=== PATIENT | male | born 1995 | race Native Hawaiian/Other Pacific Islander ===

== ENCOUNTER 2016-09-06 10:39 | Emergency (ER) | payer OTHER | END 2016-09-06 11:17 | disposition home or self-care (01) | LOC: ED 10:39 | DX: R50.9 Fever, unspecified (principal) ==

== ENCOUNTER 2021-01-03 13:09 | Emergency (ER) | payer OTHER ==
[~2021-01-03] VITALS: Ht 190.5 cm; Wt 121.6 kg
[2021-01-03 13:10] VITALS: TEMP 98
[2021-01-03 14:00] LABS: PLATELET COUNT 320 K/uL (142-355)
[2021-01-03 14:06] LABS: POTASSIUM 3.7 mmol/L (3.6-5.2); SODIUM 145 mmol/L (136-145)
[2021-01-03 15:39] VITALS: BP 119/72
== END 2021-01-03 15:39 | disposition home or self-care (01) ==
LOC: ED 13:09
PROVIDERS: Family Medicine
DX: R00.2 Palpitations (principal); F15.90 Other stimulant use, unspecified, uncomplicated
CPT/HCPCS: 36415; 80053; 80307; 81000; 84484; 85027; 93005; 99284

== ENCOUNTER 2021-08-22 09:47 | Emergency (ER) | payer OTHER ==
[~2021-08-22] VITALS: Ht 190.5 cm; Wt 121.6 kg
[2021-08-22 09:53] VITALS: TEMP 98
[2021-08-22 10:50] VITALS: BP 138/79
== END 2021-08-22 10:50 | disposition home or self-care (01) ==
LOC: ED 09:47
DX: L03.012 Cellulitis of left finger (principal); T63.301A Toxic effect of unspecified spider venom, accidental (unintentional), initial encounter; X58.XXXA Exposure to other specified factors, initial encounter; Y92.89 Other specified places as the place of occurrence of the external cause
CPT/HCPCS: 96372; 99283; J0696; J1885

== ENCOUNTER 2021-11-24 00:01 | Emergency (ER) | payer OTHER ==
[~2021-11-24] VITALS: Ht 190.5 cm; Wt 108.9 kg
[2021-11-24 02:00] VITALS: BP 130/60; TEMP 98.2
== END 2021-11-24 02:00 | disposition home or self-care (01) ==
LOC: ED 00:01
DX: L03.115 Cellulitis of right lower limb (principal); S91.114A Laceration without foreign body of right lesser toe(s) without damage to nail, initial encounter; S91.311A Laceration without foreign body, right foot, initial encounter; V86.55XA Driver of 3- or 4- wheeled all-terrain vehicle (ATV) injured in nontraffic accident, initial encounter; Y92.89 Other specified places as the place of occurrence of the external cause
CPT/HCPCS: 96372; 99283; J0690; J1885